=== PATIENT | female | born 1980 | race Caucasian/White ===

== ENCOUNTER 2016-04-23 19:25 | Emergency (ER) | payer OTHER | END 2016-04-23 21:36 | disposition home or self-care (01) | LOC: ER 19:25 | DX: O9A.211 Injury, poisoning and certain other consequences of external causes complicating pregnancy, first trimester (principal); S22.31XA Fracture of one rib, right side, initial encounter for closed fracture; O99.341 Other mental disorders complicating pregnancy, first trimester; F41.9 Anxiety disorder, unspecified; G43.109 Migraine with aura, not intractable, without status migrainosus; N80.9 Endometriosis, unspecified; O99.331 Smoking (tobacco) complicating pregnancy, first trimester; F17.210 Nicotine dependence, cigarettes, uncomplicated; Z87.442 Personal history of urinary calculi; Z3A.12 12 weeks gestation of pregnancy; V89.0XXA Person injured in unspecified motor-vehicle accident, nontraffic, initial encounter; Z88.0 Allergy status to penicillin; Z88.1 Allergy status to other antibiotic agents; Z88.8 Allergy status to other drugs, medicaments and biological substances | CPT/HCPCS: 80307 ==